=== PATIENT | female | born 1950 | race Caucasian/White ===

== ENCOUNTER 2017-12-06 10:00 | Day surgery (SDC) | payer OTHER ==
[~2017-12-06 10:00] MED LIST: NS 500 ML IV 500 ML IV ONE
[2017-12-06] MEDS ORDERED: TETRACAINE 0.5% OPHTH 1 DOSE AFFEYE ONE ×4 (10:15→13:30)
[2017-12-06] MEDS ORDERED: VIGAMOX 0.5% OPHTH 1 DOSE AFFEYE ONE ×5 (10:20→13:47)
[2017-12-06] MEDS ORDERED: PROLENSA OPHTH 1 DOSE AFFEYE ONE (10:31)
[2017-12-06] MEDS ORDERED: ALPHAGAN-P OPHTH 1 DOSE AFFEYE ONE (10:32)
[2017-12-06] MEDS ORDERED: MYDRIACIL OPHTH 1 DOSE AFFEYE ONE ×3 (10:33→10:35)
[2017-12-06] MEDS ORDERED: AK-DILATE 2.5% OPHTH 1 DOSE OP ONE ×3 (10:33→10:35)
[2017-12-06] MEDS ORDERED: CYCLOGYL 1% OPHTH 1 DOSE OP ONE ×3 (10:33→10:35)
[2017-12-06] MEDS ORDERED: BETADINE OPHTH SOLN 5% EACHEYE ONE (13:22)
[2017-12-06] MEDS ORDERED: ADRENALINE CHL INJ IJ ONE ×2 (13:26→13:30)
[2017-12-06] MEDS ORDERED: DUOVISC IO ONE ×2 (13:26→13:30)
[2017-12-06] MEDS ORDERED: BSS OPHTH (PLAIN) 500 ML with VANCOMYCIN HCL 500 MG VIAL 25 MG, ADRENALINE CHL INJ 1 MG IR ONE ×6 (13:26)
[2017-12-06] MEDS ORDERED: XYLOCAINE-MPF 1% IJ ONE ×2 (13:26→13:30)
[2017-12-06] MEDS ORDERED: VERSED ONE (13:43)
[2017-12-06 16:16] VITALS: BP 131/71
== END 2017-12-06 14:10 | disposition home or self-care (01) ==
LOC: SURG1 10:00
PROVIDERS: ATTEND Ophthalmology
PROC: 08DK3ZZ Extraction of Left Lens, Percutaneous Approach (ICD-10-PCS; principal; 2017-12-06 17:00)
PROC: 08RK3JZ Replacement of Left Lens with Synthetic Substitute, Percutaneous Approach (ICD-10-PCS; principal; 2017-12-06 17:00)
DX: H25.12 Age-related nuclear cataract, left eye (principal); H25.012 Cortical age-related cataract, left eye; H52.222 Regular astigmatism, left eye
CPT/HCPCS: A4217; J0170; J2250; J3370